=== PATIENT | female | born 1950 | race Two or more races ===

== ENCOUNTER 2019-07-07 10:50 | Outpatient (CLI) | payer OTHER | END 2019-07-07 15:00 | disposition home or self-care (01) | LOC: LAB 10:50 → RAD 10:50 → LAB 15:00 | DX: R19.4 Change in bowel habit (principal); R10.11 Right upper quadrant pain; K80.80 Other cholelithiasis without obstruction; I10 Essential (primary) hypertension ==

== ENCOUNTER 2019-07-12 07:00 | Day surgery (SDC) | payer OTHER ==
[~2019-07-12] VITALS: Ht 165.1 cm; Wt 55.8 kg
[2019-07-12] MEDS ORDERED: PANTOPRAZOLE SO40 MG PO ×2 (09:25→11:20)
[2019-07-12] MEDS ORDERED: PERCOCET 5-3251 EACH PO (11:24)
[2019-07-12] MEDS ORDERED: LEVSIN/SL0.125 MG SL (11:24)
[2019-07-12] MEDS ORDERED: AMOX1TAB5 PO (11:24)
== END 2019-07-12 16:10 | disposition home or self-care (01) ==
LOC: CIR.AMB 07:00 → SURG 09:00 → EDSTATUS 09:00 → SURG 13:45 → O/R 15:25 → CIR.AMB 16:10
DX: K80.00 Calculus of gallbladder with acute cholecystitis without obstruction (principal)

== ENCOUNTER 2019-09-22 09:31 | Emergency (ER) | payer OTHER ==
[~2019-09-22] VITALS: Ht 157.5 cm; Wt 54.4 kg
[~2019-09-22 09:31] MED LIST: AMOX1TAB5 PO; LEVSIN/SL0.125 MG SL; PANTOPRAZOLE SO40 MG PO; PERCOCET 5-3251 EACH PO
[2019-09-22] MEDS ORDERED: PROTONIX20 MG PO (10:03)
== END 2019-09-22 12:26 | disposition home or self-care (01) ==
LOC: ER 09:31 → EDBD 09:33 → ER 09:33
DX: L02.415 Cutaneous abscess of right lower limb (principal)